=== PATIENT | male | born 1970 | race Caucasian/White ===

== ENCOUNTER 2016-12-12 21:36 | Emergency (ER) | payer BC ==
--- NOTE | 2016-12-12 22:04 | ED Physician Documentation ---
General Adult - HISTORIAN Historian: patient - HPI Stated Complaint: doesnt know where he is Chief Complaint: General Adult Onset: hours Timing: still present Severity: moderate Further Comments: yes (Pt is a 46 yo male brought to ER by law enforcement after erratic driving. Pt did not know what town he was in and thought he was near [place]. Pt states that he was in [facility] in [place] until this morning where he had been admitted for seizure. Pt states that he has hx seizure d/o, but had not had a seizure for years and is not on seizure meds. Pt states that he was once dx'd with hemochromatosis, but is uncertain if this dx was correct. Pt has DM. Pt states that he has hx alcohol abuse and was at rehab at [facility] last June. Pt states that he had one cocktail today. Pt is to follow up tomorrow at [facility] for further testing, including EEG. Pt denies feeling ill at this time.) - ROS CONST: no problems EYES/ENT: none CVS/RESP: none GI/: none MS/SKIN/LYMPH: none NEURO/PSYCH: other (recently seen for seizure) - PAST HX Past History: hypertension, other (seizure d/o, possible hemochromatosis, hx alcohol abuse, DM.) Surgeries/Procedures: cholecystectomy Allergies/Adverse Reactions: Allergies Allergy/AdvReac Type Severity Reaction Status Date / Time No Known Allergies Allergy Verified 12/12/16 21:48 Home Medications: Ambulatory Orders Medication Instructions Recorded NK [NK] 12/12/16 - SOCIAL HX Smoking History: non-smoker Alcohol Use: other (Pt has hx alcohol abuse) - FAMILY HX Family History: No - VITAL SIGNS Vital Signs: Vital Signs Temp Pulse Resp BP Pulse Ox 98.4 F 65 16 156/111 94 12/12/16 21:50 12/12/16 21:50 12/12/16 21:50 12/12/16 21:50 12/12/16 21:50 - REVIEWED ASSESSMENTS Nursing Assessment Reviewed: Yes Vitals Reviewed: Yes Progress - Progress Progress: Pt's mother in ER with pt. She states pt is acting as his usual self. She states that pt did not have CT study during his recent visit to [facility] and is to have further studies at [facility] in am. Pt declined to have CT study here, and is resistant to further eval/tx. Pt has elevated liver enzymes. He states that he will f/u in [place]. KCl 40 mEq po x 1 in ER for hypokalemia. Rx KCl 20 mEq po qd - EKG/XRAY/CT EKG: NSR (HR=89; normal EKG.) General Adult Physical Exam - PHYSICAL EXAM GENERAL APPEARANCE: no distress EENT: eye inspection normal, ENT inspection normal, pharynx normal NECK: normal inspection, supple RESPIRATORY: no resp distress, chest non-tender, breath sounds normal CVS: reg rate & rhythm, heart sounds normal ABDOMEN: soft, no organomegaly, normal bowel sounds BACK: normal inspection SKIN: warm/dry, normal color EXTREMITIES: non-tender, normal range of motion, no evidence of injury NEURO: oriented X3, CN's nml as tested, motor nml, sensation nml, other (Pt is digressive in answering questions; but appears oriented x 3 at time of exam. Able to spell WORLD in reverse. No focal deficits.) Discharge Clincal Impression: Alcohol use, Elevated liver enzymes Referrals: Primary Doctor,No [Primary Care Provider] - 2 Days Home Medications: Ambulatory Orders NK [NK] 12/12/16 Condition: Stable Disposition: 01 HOME, SELF-CARE Decision to Admit: NO Decision Time: 01:18
[2016-12-12 22:51] LABS: AMPHETAMINE NEGATIVE ng/mL (<1000); BARBITURATES NEGATIVE ng/mL (<300); CANNABINOIDS NEGATIVE ng/mL (<50); COCAINE NEGATIVE ng/mL (<150); METHAMPHETAMINE NEGATIVE ng/mL (<1000); METHYLENEDIOXYMETHAMPHETAMINE NEGATIVE ng/mL (<500)
[2016-12-12 22:54] LABS: BASOPHILS % 0.4 (0.0-1.5); EOSINOPHILS % 1.7 % (0.0-6.8); LYMPHOCYTES # 2.1 # k/uL (0.6-4.0); MEAN CORPUSCULAR HEMOGLOBIN 29.5 pg (28.0-34.0); MONOCYTES # 0.6 # k/uL (0.0-0.9); MONOCYTES % 5.1 % (0.0-11.0); NEUTROPHILS # 8.5 # k/uL (1.4-7.7)
[2016-12-12 22:57] LABS: eGFR (African) > 60; eGFR (Non-African) > 60
[2016-12-12] MEDS: POTASSIUM CHLORIDE 20 MEQ TABLET.ER PO ONE (23:02)
[2016-12-13 03:09] VITALS: BP 162/112
== END 2016-12-13 01:50 | disposition home or self-care (01) ==
LOC: ED 21:36
DX: F10.99 Alcohol use, unspecified with unspecified alcohol-induced disorder (principal); R94.5 Abnormal results of liver function studies
CPT/HCPCS: 80053; 80320; 80377; 85025; 93005; A9270; 99283; G0480; G0481